=== PATIENT | female | born 1980 ===

== ENCOUNTER 2018-06-28 14:44 | Emergency (ER) | payer OTHER ==
[2018-06-28] MEDS ORDERED: Sodium Chloride 0.9% 500 ML IV STA (14:59)
--- NOTE | 2018-06-28 15:08 | ED PDOC ---
Arrival/HPI - General Chief Complaint: Psychiatric Evaluation Time Seen by Provider: 06/28/18 14:48 Historian: Patient - History of Present Illness Narrative History of Present Illness (Text): 06/28/18 15:02 A 37 year old female with no known past medical history,presents to the emergency department with a complaint of suicidal ideation. Patient states that she lives in [place], but is staying with her mother in [place]. She states that she had a fight with her last night. She states that about 2 hours ago she took a handful of Seroquil today. The patient is unaware how many pills she took, but says it may have been between 10-20 and the pills are 20 mg. The patient has never been admitted for psychiatric reasons. She is a non drinker/smoker/drug user. The patient denies fevers, chills, headache, dizziness, sore throat, cough, chest pain, shortness of breath, dyspnea on exertion, abdominal pain, nausea, vomiting, diarrhea, neck/back pain, urinary/bowel changes or any other complaint. Time/Duration: Prior to Arrival Symptom Onset: Sudden Symptom Course: Unchanged Activities at Onset: Rest, Light Context: Home Associated Symptoms (Text): 06/28/18 15:26 Suicide attempt with an overdose of Seroquel pills. Patient is unsure how many she took. She is mildly somnolent at this time. History of depression, but she denies previous psychiatric admission. She abuses alcohol. Denies drug abuse. Past Medical History - Provider Review Nursing Documentation Reviewed: Yes - Psychiatric Hx Psychophysiologic Disorder: Yes Hx Anxiety: Yes Hx Depression: Yes Hx Substance Use: No Family/Social History - Physician Review Nursing Documentation Reviewed: Yes Family/Social History: No Known Family HX Smoking Status: Never Smoked Hx Alcohol Use: Yes Frequency of alcohol use: Daily Hx Substance Use: No Allergies/Home Meds Allergies/Adverse Reactions: Allergies No Known Allergies Allergy (Verified 06/28/18 14:53) Home Medications: Home Meds Medication Instructions Recorded Confirmed ARIPiprazole [Abilify] 2 mg PO DAILY 06/28/18 06/28/18 Fluoxetine HCl [Prozac] 40 mg PO DAILY 06/28/18 06/28/18 Quetiapine Fumarate [Seroquel] 200 mg PO HS 06/28/18 06/28/18 Review of Systems - Physician Review All systems were reviewed & negative as marked: Yes - Review of Systems Constitutional: absent: Fatigue, Fevers ENT: absent: Sore Throat Respiratory: absent: SOB, Cough Cardiovascular: absent: Chest Pain, HUBBARD Gastrointestinal: absent: Abdominal Pain, Stool Changes, Diarrhea, Nausea, Vomiting Genitourinary Female: absent: Urine Output Changes Musculoskeletal: absent: Back Pain, Neck Pain Neurological: absent: Headache, Dizziness Physical Exam Appearance: Positive for: Well-Appearing, Other (Somnolent.) - Systems Exam Head: Present: Atraumatic, Normocephalic Pupils: Present: PERRL Extroacular Muscles: Present: EOMI Conjunctiva: Present: Normal Mouth: Present: Moist Mucous Membranes Pharnyx: No: ERYTHEMA, EXUDATE, TONSILS ENLARGED Neck: Present: Normal Range of Motion Respiratory/Chest: Present: Clear to Auscultation, Good Air Exchange, Decreased Breath Sounds. No: Respiratory Distress, Accessory Muscle Use Cardiovascular: Present: Regular Rate and Rhythm, Normal S1, S2. No: Murmurs Abdomen: No: Tenderness, Distention, Peritoneal Signs Back: Present: Normal Inspection Upper Extremity: Present: Normal Inspection. No: Cyanosis, Edema Lower Extremity: Present: Normal Inspection. No: Edema Neurological: Present: GCS=15, CN II-XII Intact, Speech Normal, Motor Func Grossly Intact Skin: Present: Warm, Dry, Normal Color. No: Rashes Psychiatric: Present: Alert, Oriented x 3, Normal Insight, Normal Concentration, Depressed Mood, Suicidal Ideation, Intoxicated Medical Decision Making ED Course and Treatment: 06/28/18 15:10 Impression: A 37 year old female presents to the emergency department for further evaluation of suicidal ideation after taking an unknown amount of Seroquil pills. Plan: -- EKG -- Chest X-ray -- Labs -- Urinalysis -- IV Fluids -- Reassess and disposition Prior Visits: Notes and results from previous visits were reviewed. Progress Notes: 06/28/18 16:16 EKG shows sinus tachycardia rate approximately [address] or T-wave changes. 06/28/18 17:51 Patient does have alcohol on board. The nurse spoke with poison control. Crisis has been called and patient is awaiting evaluation. 06/28/18 18:14 Patient will be endorsed to the night emergency physician waiting crisis evaluation for final disposition. - Lab Interpretations I have reviewed the lab results: Yes - EKG Interpretation Interpreted by ED Physician: Yes Type: 12 lead EKG - Medication Orders Current Medication Orders: Sodium Chloride (Sodium Chloride 0.9%) 500 mls @ 1,000 mls/hr IV .Q30M STA Stop: 06/28/18 15:28 - Scribe Statement The provider has reviewed the documentation as recorded by the Kaliaibe Rhina Del Toro Provider Scribe Attestation: All medical record entries made by the Scribe were at my direction and personally dictated by me. I have reviewed the chart and agree that the record accurately reflects my personal performance of the history, physical exam, medical decision making, and the department course for this patient. I have also personally directed, reviewed, and agree with the discharge instructions and disposition. Disposition/Present on Arrival - Present on Arrival Any Indicators Present on Arrival: No History of DVT/PE: No History of Uncontrolled Diabetes: No Urinary Catheter: No History of Decub. Ulcer: No History Surgical Site Infection Following: None - Disposition Have Diagnosis and Disposition been Completed?: Yes Diagnosis: Depression, Suicidal ideation, Alcohol intoxication, Alcohol abuse, Overdose Disposition Time: 18:16 Condition: GOOD Forms: [employer] (Irish)
[2018-06-28 15:35] VITALS: O2SAT 98
[2018-06-28 15:49] LABS: BASO # 0.02 K/mm3 (0.0-2.0); BASO % 0.2 % (0.0-3.0); EOS % 0.3 % (1.5-5.0); GRAN # 7.1 (1.4-6.5); LYMPH % 20.3 % (22.0-35.0); MEAN CELL VOLUME 75.6 fl (80.0-105.0); MEAN CORPUSCULAR HGB CONC 31.8 g/dl (31.0-37.0); MEAN PLATELET VOLUME 9.5 fl (7.0-11.0); MONO # 0.6 (0.1-0.6); MONO % 6.2 % (1.0-6.0); RBC 4.99 10^6/uL (3.5-6.1); RED CELL DISTRIBUTION WIDTH 23.7 % (11.5-14.5); WHITE BLOOD COUNT 9.7 10^3/ul (4.5-11.0)
[2018-06-28 16:25] LABS: ACETAMINOPHEN < 10.0 ug/ml (10.0-20.0); SALICYLATE < 1 mg/dL (2.0-20.0)
[2018-06-28 16:27] LABS: ALB/GLOB RATIO 1.1 (1.1-1.8); ALBUMIN 4.1 g/dL (3.0-4.8); ALT/SGPT 28 U/L (7-56); AST/SGOT 36 U/L (14-36); BLOOD UREA NITROGEN 11 mg/dL (7-21); CALCIUM 8.6 mg/dL (8.4-10.5); GFR NON-AFRICAN AMERICAN > 60
[2018-06-28 16:51] LABS: URINE BILIRUBIN NEGATIVE (NEGATIVE); URINE BLOOD NEGATIVE (NEGATIVE); URINE GLUCOSE (UA) NEGATIVE (NEGATIVE); URINE LEUKOCYTE ESTERASE NEGATIVE Leu/uL (NEGATIVE); URINE PROTEIN 30 mg/dL (<30 mg/dL); URINE UROBILINOGEN 0.2 E.U./dL (<1 E.U./dL)
[2018-06-28 16:54] LABS: URINE APPEARANCE CLEAR (CLEAR); URINE COLOR YELLOW (YELLOW)
[2018-06-28 17:04] LABS: HCG,QUALITATIVE URINE NEGATIVE (NEGATIVE); URINE BACTERIA FEW (NEG); URINE RBC NEGATIVE /hpf (0-2)
[2018-06-28 17:09] LABS: BARBITURATES, UR NEGATIVE (NEGATIVE); BENZODIAZEPINES, UR NEGATIVE (NEGATIVE)
[2018-06-28 17:26] LABS: OPIATES, UR NEGATIVE (NEGATIVE); PHENCYCLIDINE, UR NEGATIVE (NEGATIVE)
[2018-06-28] MEDS ORDERED: Folic Acid 1 MG, Thiamine 100 MG, Multivitamin (MVI) 10 ML in Dextrose 5% In Water 1,00... IV SCH (17:45)
--- NOTE | 2018-06-28 20:27 | ED PDOC ---
Physical Exam Vital Signs Reviewed: Yes Vital Signs Temp Pulse Resp BP Pulse Ox 06/28/18 19:03 103/68 06/28/18 17:24 98 F 75 19 102/69 98 06/28/18 14:45 98 F 98 H 19 123/73 98 Temperature: Afebrile Blood Pressure: Normal Pulse: Tachycardic Respiratory Rate: Normal Appearance: Positive for: Well-Appearing, Non-Toxic, Comfortable Pain Distress: None Mental Status: Positive for: Alert and Oriented X 3 Medical Decision Making ED Course and Treatment: 06/28/18 20:24 Patient is here for evaluation of drug overdose on Seroquil, and suicidal ideation. Patient endorsed to me pending medical clearance, alcohol sobriety, and serial EKGs to rule out arrhythmias. 06/28/18 21:18 patient is medically stable for psych eval, admit, and transfer if needed 06/29/18 03:23 patient has been seen and screened by PES screener. patient has been cleared from discharge from a psychiatric standpoint, patient does not require acute hospitalization, patient does not appear to be an acute threat to herself or others. - Lab Interpretations Lab Results: 06/28/18 15:30 06/28/18 16:05 Lab Results 06/28/18 16:30: Urine Opiates Screen Negative, Urine Methadone Screen Negative, Ur Barbiturates Screen Negative, Ur Phencyclidine Scrn Negative, Ur Amphetamines Screen Negative, U Benzodiazepines Scrn Negative, U Oth Cocaine Metabols Negative, U Cannabinoids Screen Negative 06/28/18 16:30: Urine Color Yellow, Urine Appearance Clear, Urine pH 6.0, Ur Specific [place] >= 1.030, Urine Protein 30 H, Urine Glucose (UA) Negative, Urine Ketones Negative, Urine Blood Negative, Urine Nitrate Negative, Urine Bilirubin Negative, Urine Urobilinogen 0.2, Ur Leukocyte Esterase Negative, Urine RBC Negative, Urine WBC 2 - 5, Ur Epithelial Cells 4 - 5, Urine Bacteria Few, Urine HCG, Qual Negative 06/28/18 16:05: Alcohol, Quantitative 216 H 06/28/18 16:05: Salicylates < 1 L, Acetaminophen < 10.0 L 06/28/18 16:05: Sodium 141, Potassium 4.3, Chloride 108 H, Carbon Dioxide 22, Anion Gap 15, BUN 11, Creatinine 0.9, Est GFR ( Amer) > 60, Est GFR (Non- Af Amer) > 60, Random Glucose 96, Calcium 8.6, Magnesium 2.3 H, Total Bilirubin 0.2, AST 36, ALT 28, Alkaline Phosphatase 137 H, Total Creatine Kinase 38, Total Protein 7.7, Albumin 4.1, Globulin 3.6, Albumin/Globulin Ratio 1.1 06/28/18 15:30: WBC 9.7, RBC 4.99, Hgb 12.0, Hct 37.7, MCV 75.6 L, MCH 24.0 L, MCHC 31.8, RDW 23.7 H, Plt Count 464 H, MPV 9.5, Gran % 73.0 H, Lymph % (Auto) 20.3 L, [place] % (Auto) 6.2 H, Eos % (Auto) 0.3 L, Baso % (Auto) 0.2, Gran # 7.10 H, Lymph # (Auto) 2.0, [place] # (Auto) 0.6, Eos # (Auto) 0.0, Baso # (Auto) 0.02 - RAD Interpretation Radiology Orders: 06/28/18 17:52 CHEST PORTABLE [RAD] Stat - EKG Interpretation EKG Interpretation (Text): 06/28/18 20:49 2020: nsr at 100 bpm, nml qrs, nml axis, no acute sttw abn Interpreted by ED Physician: Yes - Medication Orders Current Medication Orders: Folic Acid 1 mg/ Thiamine HCl 100 mg/ Multivitamins/Vitamin C 10 ml/ Dextrose 1,011.2 mls @ 100 mls/hr IV .Q10H7M EILEEN Last Admin: 06/28/18 18:31 Dose: 100 mls/hr eMAR Start Stop Document 06/28/18 18:31 GMI (Rec: 06/28/18 18:31 GMI [id number]) Intravenous Solution Start Date 06/28/18 Start Time 18:31 Discontinued Medications Sodium Chloride (Sodium Chloride 0.9%) 500 mls @ 1,000 mls/hr IV .Q30M STA Stop: 06/28/18 15:28 Last Admin: 06/28/18 17:39 Dose: 1,000 mls/hr eMAR Start Stop Document 06/28/18 17:39 GMI (Rec: 06/28/18 17:40 GMI [id number]) Intravenous Solution Start Date 06/28/18 Start Time 17:39 End Date 06/28/18 End time 17:39 Total Infusion Time 0 - Scribe Statement The provider has reviewed the documentation as recorded by the Arpita Gregorio Provider Scribe Attestation: All medical record entries made by the Scribe were at my direction and personally dictated by me. I have reviewed the chart and agree that the record accurately reflects my personal performance of the history, physical exam, medical decision making, and the department course for this patient. I have also personally directed, reviewed, and agree with the discharge instructions and disposition. Disposition/Present on Arrival - Present on Arrival Any Indicators Present on Arrival: No History of DVT/PE: No History of Uncontrolled Diabetes: No Urinary Catheter: No History of Decub. Ulcer: No History Surgical Site Infection Following: None - Disposition Have Diagnosis and Disposition been Completed?: Yes Diagnosis: Depression, Alcohol intoxication, Alcohol abuse, Accidental drug overdose, Suicidal ideation Disposition: HOME/ ROUTINE Disposition Time: 19:44 Condition: GOOD Additional Instructions: VALERIY ARREOLA, thank you for letting us take care of you today. Your provider was Dr. Jairon Osman and you were treated for excessive drug ingestion. The emergency medical care you received today was directed at your acute symptoms. If you were prescribed any medication, please fill it and take as directed. It may take several days for your symptoms to resolve. Return to the Emergency Department if your symptoms worsen, do not improve, or if you have any other problems. Please contact your doctor or call one of the physicians/clinics you have been referred to that are listed on the Patient Visit Information form that is included in your discharge packet. Bring any paperwork you were given at discharge with you along with any medications you are taking to your follow up visit. Our treatment cannot replace ongoing medical care by a primary care provider outside of the emergency department. Thank you for allowing the [facility] team to be part of your care today. If you had an X-Ray or CT scan: A Radiologist will review the ED reading if any change in treatment is needed we will contact you. If you had a blood, urine, or wound culture: It will take several days for the results, if any change in treatment is needed we will contact you. If you had an STI test: It will take 48 hours for the results. Please call after 1 week if you have not heard back. Referrals: [facility] [Outside] - Follow up with primary Prudence Reaves MD [Medical Doctor] - Follow up with primary Forms: [employer] (Pashto)
[2018-06-29 03:32] VITALS: BP 115/65
[2018-06-29 03:57] VITALS: PULSE 78; RESP 18; TEMP 97.8
--- NOTE | 2018-06-29 09:11 | CARD ---
APPROVED REPORT Date of service: 06/28/2018 EKG Measurement Heart [id number] <Conclusion> Sinus tachycardia Minimal voltage criteria for LVH, may be normal variant PRWP Prolonged QTc
--- NOTE | 2018-06-29 09:21 | CARD ---
APPROVED REPORT Date of service: 06/28/2018 EKG Measurement Heart [id number] <Conclusion> Normal sinus rhythm PRWP LVH by voltage Prolonged QTc No change
--- NOTE | 2018-06-29 10:09 | RAD ---
Date of service: 06/28/2018 HISTORY: pes COMPARISON: No prior. FINDINGS: LUNGS: No active pulmonary disease. PLEURA: No significant pleural effusion identified, no pneumothorax apparent. CARDIOVASCULAR: No radiographic findings to suggest acute or significant cardiovascular disease. OSSEOUS STRUCTURES: No significant abnormalities. VISUALIZED UPPER ABDOMEN: Normal. OTHER FINDINGS: None. IMPRESSION: No active disease.
== END 2018-06-29 03:45 | disposition home or self-care (01) ==
LOC: ED 14:44
DX: T50.991A Poisoning by other drugs, medicaments and biological substances, accidental (unintentional), initial encounter (principal); Y92.89 Other specified places as the place of occurrence of the external cause; F32.9 Major depressive disorder, single episode, unspecified; R45.851 Suicidal ideations; F10.129 Alcohol abuse with intoxication, unspecified; Y90.3 Blood alcohol level of 60-79 mg/100 ml
CPT/HCPCS: 71045; 80053; 80320; 80324; 80329; 80345; 80346; 80349; 80353; 80358; 80361; 81001; 82550; 83735; 83992; 84703; 85025; 90791; 93005; 96374; 99285; J3411; J7040; J7070